=== PATIENT | female | born 1965 | race Caucasian/White ===

== ENCOUNTER 2017-11-20 12:40 | Emergency (ER) | payer OTHER ==
[~2017-11-20] VITALS: Ht 167.6 cm; Wt 93.0 kg
[2017-11-20] MEDS ORDERED: ipratropium/albuterol 3ml nebule NEB ONE (13:20)
[2017-11-20] MEDS ORDERED: ALBU8.5H8 IH (14:07)
[2017-11-20] MEDS ORDERED: GUAI1TBM19 PO (14:07)
[2017-11-20] MEDS ORDERED: AZIT-57 PO (14:07)
[2017-11-20] MEDS ORDERED: BENZ-16 PO (14:07)
[2017-11-20 14:22] VITALS: BP 136/78
== END 2017-11-20 14:23 | disposition home or self-care (01) ==
LOC: ER 12:40
DX: J06.9 Acute upper respiratory infection, unspecified (principal); F17.200 Nicotine dependence, unspecified, uncomplicated; Z88.8 Allergy status to other drugs, medicaments and biological substances; Z88.5 Allergy status to narcotic agent; Z79.899 Other long term (current) drug therapy
CPT/HCPCS: 71046; 94640; 94760; 99284

== ENCOUNTER 2018-03-04 22:22 | Emergency (ER) | payer MEDICAID, OTHER ==
[~2018-03-04] VITALS: Ht 165.1 cm; Wt 79.2 kg
[~2018-03-04 22:22] MED LIST: ALBU8.5H8 IH; GUAI1TBM19 PO
[2018-03-04] MEDS ORDERED: KEN0.1O TP (23:27)
[2018-03-04] MEDS ORDERED: PRED10TA PO (23:27)
[2018-03-04 23:57] VITALS: BP 102/69
== END 2018-03-04 23:58 | disposition home or self-care (01) ==
LOC: ER 22:23
DX: L23.7 Allergic contact dermatitis due to plants, except food (principal); F17.200 Nicotine dependence, unspecified, uncomplicated; Z88.5 Allergy status to narcotic agent; Z79.899 Other long term (current) drug therapy
CPT/HCPCS: 99283

== ENCOUNTER 2018-06-18 12:35 | Emergency (ER) | payer MEDICAID ==
[~2018-06-18] VITALS: Ht 165.1 cm; Wt 87.2 kg
[~2018-06-18 12:35] MED LIST changes: +METH500T PO; +PRED10TA PO
[2018-06-18 12:38] VITALS: BP 137/96
[2018-06-18] MEDS ORDERED: ipratropium/albuterol 3ml nebule NEB ONE (12:55)
[2018-06-18] MEDS ORDERED: GUAI1TBM19 PO (12:59)
[2018-06-18] MEDS ORDERED: AZIT-63 PO (12:59)
[2018-06-18] MEDS ORDERED: benzonatate 100mg capsule PO ONE (13:00)
== END 2018-06-18 13:28 | disposition home or self-care (01) ==
LOC: ER 12:36
DX: J20.9 Acute bronchitis, unspecified (principal); J45.909 Unspecified asthma, uncomplicated; G89.29 Other chronic pain; F17.210 Nicotine dependence, cigarettes, uncomplicated; Z88.5 Allergy status to narcotic agent; Z88.8 Allergy status to other drugs, medicaments and biological substances; Z79.899 Other long term (current) drug therapy; Z79.2 Long term (current) use of antibiotics
CPT/HCPCS: 94640; 94760; 99284

== ENCOUNTER 2018-10-09 14:26 | Emergency (ER) | payer MEDICAID ==
[~2018-10-09] VITALS: Ht 165.1 cm; Wt 83.8 kg
[2018-10-09] MEDS ORDERED: LORazepam 1 MG tablet PO ONE (15:30)
[2018-10-09 16:00] LABS: CLARITY,URINE SLIGHTLY CLOUDY (Clear); COLOR,URINE YELLOW (Yellow); GLUCOSE, URINE NEGATIVE (Neg); KETONES,URINE NEGATIVE (Neg); LEUKOCYTE ESTERASE ,URINE NEGATIVE (Neg); NITRITES, URINE NEGATIVE (Neg); OCCULT BLOOD,URINE SMALL (Neg); PROTEIN,URINE 30 mg/dl (Neg); UROBILINOGEN,URINE 0.2 E.U/dL (0.2-1.0)
[2018-10-09 16:01] LABS: UA COLLECTION TYPE VOIDED
[2018-10-09 16:01] LABS: BASOPHILS % (AUTO) 0.6 % (0-1); EOSINOPHILS % (AUTO) 0.8 % (0-6); HEMATOCRIT 44.6 % (35.0-45.0); HEMOGLOBIN 15.1 g/dl (12.0-16.0); LYMPHOCYTES # (AUTO) 1.9 X10'3 (1.1-4.8); MEAN CORPUSCULAR HEMOGLOBIN 32.9 PG (27.0-31.0); MEAN CORPUSCULAR HGB CONC 33.7 % (33.0-36.5); MEAN CORPUSCULAR VOLUME 97.4 FL (78-98); MEAN PLATELET VOLUME 8.1 FL (7.4-10.4); MONOCYTES # (AUTO) 0.6 X10'3 (0-0.9); MONOCYTES % (AUTO) 9.5 % (2-12); NEUTROPHILS # (AUTO) 3.7 X10'3 (1.8-7.7); NEUTROPHILS % (AUTO) 59.1 % (42-75); PLATELET COUNT 231 X10'3 (140-440); RED BLOOD COUNT 4.58 X10'6 (4.20-5.60); RED CELL DISTRIBUTION WIDTH 13.9 % (11.5-14.5); WHITE BLOOD COUNT 6.2 X10'3 (4.5-11.0)
[2018-10-09 16:12] LABS: URINE AMPHETAMINE SCREEN NEGATIVE (Neg); URINE BARBITUATE SCREEN NEGATIVE (Neg); URINE BENZODIAZEPINES SCREEN NEGATIVE (Neg); URINE CANNABINOID SCREEN POSITIVE (Neg); URINE COCAINE SCREEN NEGATIVE (Neg); URINE METHADONE SCREEN NEGATIVE (Neg); URINE OPIATE SCREEN POSITIVE (Neg); URINE PHENCYCLIDINE SCREEN NEGATIVE (Neg)
[2018-10-09 16:16] LABS: MUCUS STRANDS MANY /LPF (Neg); SQUAMOUS EPITHELIAL CELL,UR MANY /LPF (FEW)
[2018-10-09 16:17] LABS: HYALINE CASTS >30 /LPF (NEGATIVE)
[2018-10-09 16:18] LABS: BACTERIA,URINE FEW /HPF (Neg)
[2018-10-09 16:19] LABS: ALANINE AMINOTRANSFERASE 40 U/L (12-78); ALBUMIN 4.3 G/DL (3.4-5.0); ALBUMIN/GLOBULIN RATIO 1.4 (1.1-1.5); ALKALINE PHOSPHATASE 70 IU/L (46-116); ANION GAP 11 (8-16); ASPARTATE AMINO TRANSFERASE 33 U/L (10-37); BILIRUBIN,TOTAL 0.7 MG/DL (0.1-1.0); BLOOD UREA NITROGEN 6 MG/DL (7-18); BUN/CREATININE RATIO 7.6 (6.6-38.0); CHLORIDE 103 MMOL/L (99-107); CREATININE 0.79 MG/DL (0.40-0.90); ETHANOL < 0.010 GM/DL (0.0-0.010); GLUCOSE 100 MG/DL (70-104); SODIUM 142 MMOL/L (135-145); TOTAL CARBON DIOXIDE 28.4 MMOL/L (24-32); TOTAL PROTEIN 7.4 G/DL (6.4-8.2); eGFR 76 ML/MIN
[2018-10-09 16:22] LABS: POTASSIUM 2.7 MMOL/L (3.5-5.1)
--- NOTE | 2018-10-09 16:22 | NUR ---
Admisssion Note: 53 year old female brought back directly from Triage accompanied by and their dog. She was dressed in mismatched clothes and presents as loud with rambling speech. States her reason for being here is lack of sleep times the past five days. Believes if she falls asleep she "will like it says on the internet. People are coming in my house at night and moving my stuff. I can't find my Celexa. There are voices in my head telling me what to do. " Crying as she relates this information. Appears to be responding to internal stimuli. Loses self in thought. assisting with the interview process. states they moved here one year ago from a town named [facility], where "we lived [place] States "never felt safe." Happy to be in [place] until related "she was getting messages in her head that kept her awake for the past five nights." Blood work obtained. Urine sent to the lab.
[2018-10-09] MEDS ORDERED: potassium Cl oral solution 20 MEQ/15 ML PO ONE (16:25)
[2018-10-09] MEDS ORDERED: haloperidol lactate 5mg/ml inj IM ONE (16:25)
[2018-10-09] MEDS ORDERED: LORazepam 0.5 MG tablet PO ONE (16:35)
--- NOTE | 2018-10-09 16:40 | NUR ---
Call received @ 9645 from the lab that patient had a critical potassium value of 2.7. Charge Nurse Paty LUGO notified. Order received for potassium replacement. Urine revealed UTI. Order received for Septra. Orders also written for Ativan and Haldol. All meds administered as ordered without event.
[2018-10-09] MEDS: sulfamethoxazole/trimethoprim DS (800/160mg) tablet PO SCH ×3 (16:43→20:14)
--- NOTE | 2018-10-09 17:10 | NUR ---
Up to the bathroom with assistance. Voided large amount.
--- NOTE | 2018-10-09 18:45 | NUR ---
Patient is sleeping at shift change. Her dog is on the bed with her. Patients is sitting at bedside. Q15 minute rounding is being done for patient safety.
--- NOTE | 2018-10-09 19:10 | NUR ---
PT SLEEPING LAYING ON HER RIGHT SIDE, RESPIRATIONS EVEN AND UNLABORED. NO DISTRESS NOTED AT THIS TIME. PT HAS GUEST AT BEDSIDE.
--- NOTE | 2018-10-09 20:05 | NUR ---
Patient is in a deep sleep. Her is going home with the dog. Patients bed is in view from the nursing station.
--- NOTE | 2018-10-10 03:21 | NUR ---
Patient awoke and requested a warm blanket. This was provided. Patient immediately returned to sleep. Q15 minute rounding continues for patient safety.
[2018-10-10] MEDS ORDERED: potassium Cl 20 mEq SR tablet PO STA (06:43)
[2018-10-10] MEDS ORDERED: magnesium oxide 400mg tablet PO ONE (06:45)
--- NOTE | 2018-10-10 07:14 | NUR ---
TELEPSYCH DR BECKER CALLED AND GIVEN REPORT ABOUT PT CURRENT STATUS, HISTORY AND MEDICATION INFORMATION.
--- NOTE | 2018-10-10 07:16 | NUR ---
PT WAS SLEEPING, RN WOKE PT, DR JAVIER SOC PROVIDER SPEAKING WITH PT VIA TELEPSYCH MONITOR NOW.
[2018-10-10 07:24] LABS: ALANINE AMINOTRANSFERASE 36 U/L (12-78); ALBUMIN 3.7 G/DL (3.4-5.0); ALBUMIN/GLOBULIN RATIO 1.2 (1.1-1.5); ALKALINE PHOSPHATASE 67 IU/L (46-116); ANION GAP 9 (8-16); ASPARTATE AMINO TRANSFERASE 26 U/L (10-37); BILIRUBIN,TOTAL 0.8 MG/DL (0.1-1.0); BLOOD UREA NITROGEN 10 MG/DL (7-18); BUN/CREATININE RATIO 11.9 (6.6-38.0); CALCIUM 8.5 MG/DL (8.5-10.1); CHLORIDE 108 MMOL/L (99-107); CREATININE 0.84 MG/DL (0.40-0.90); GLUCOSE 84 MG/DL (70-104); POTASSIUM 3.4 MMOL/L (3.5-5.1); SODIUM 145 MMOL/L (135-145); TOTAL CARBON DIOXIDE 28.3 MMOL/L (24-32); TOTAL PROTEIN 6.7 G/DL (6.4-8.2); eGFR 70 ML/MIN
--- NOTE | 2018-10-10 07:43 | NUR ---
PT TELEPSYCH EVAL VIA MONITOR COMPLETE
[2018-10-10] MEDS: sulfamethoxazole/trimethoprim DS (800/160mg) tablet PO SCH (07:51)
--- NOTE | 2018-10-10 08:26 | NUR ---
MEDICATED PT WITH MORNING MEDICATION PER ORDERS, BREAKFAST TRAY PLACED AT BEDSIDE, PT IS RESTING ON LEFT SIDE AT THIS TIME.
[2018-10-10] MEDS ORDERED: ARIP5TAB4 PO (08:55)
[2018-10-10] MEDS ORDERED: ALBU8.5H8 IH (09:29)
[2018-10-10] MEDS ORDERED: METH500T PO (09:29)
--- NOTE | 2018-10-10 09:30 | NUR ---
SPOUSE STOPPED BY TO VISIT PT, THANG OMALLEY [phone], STATES PT DAUGHTERS TO COME VISIT HER THIS WEEKEND, INFORMED SPOUSE PT IS TO BE EVALUATED BY [facility] TODAY AND DETERMINE IF HOLD AND PLACEMENT NEEDED. SPOUSE LEAVING TO WORK AND WILL RETURN LATER TODAY
--- NOTE | 2018-10-10 09:41 | NUR ---
RECEIVED CALL FROM DR PRADO SOC CLARIFYING ORDER ABILIFY 10 MG DAILY. MED REC UPDATED AND WILL HAVE DR ALVAREZ SIGN AND I WILL FAX TO PHARMACY
--- NOTE | 2018-10-10 09:54 | NUR ---
PT JUST FINISHED SPEAKING WITH MANDIE [facility], MANDIE STATES SHE WILL MAKE HER 5150 AND THE PATIENT MAY BE GOING UPSTAIRS AT SOME POINT TODAY, PT IS NOW IN BED RESTING ON HER RIGHT SIDE, CALM, NO S/S OF DISTRESS
--- NOTE | 2018-10-10 10:46 | NUR ---
PT IS IN BED RESTING ON RIGHT SIDE, NO S./S OF DISTRESS NOTED, BREATHING NORMAL, NON LABORED
[2018-10-10] MEDS ORDERED: aripiprazole 5mg tablet PO SCH (11:12)
[2018-10-10] MEDS ORDERED: albuterol 2.5 MG/3 ML nebule NEB PRN (11:15)
--- NOTE | 2018-10-10 11:15 | NUR ---
pt given medications, she did admission paperwork wirh admitting
[2018-10-10] MEDS ORDERED: cyclobenzaprine 10mg tablet PO SCH (11:16)
--- NOTE | 2018-10-10 12:16 | NUR ---
pt at bedside, she acknowledged him and went back to sleep
--- NOTE | 2018-10-10 12:59 | NUR ---
PT IN BED ON LEFT SIDE, NO S/S OF DISTRESS, IS SPEAKING WITH NATALIA LOCKWOOD, RE: PLAN OF CARE
--- NOTE | 2018-10-10 13:39 | NUR ---
pt just left, pt just got off the phone with her daughter Marilee, she is now resting, no s/s of distress
--- NOTE | 2018-10-10 14:36 | NUR ---
pt still at bedside, pt is sleeping on her left side, no agitation noted
--- NOTE | 2018-10-10 15:43 | NUR ---
PT IS SITTING AT BEDISDE, VITALS BEING TAKE, COFFEE GIVEN 10 MINS AGO, AT BEDSIDE, CALM, NO S/S OF DISTRESS NOTED
[2018-10-10 16:03] VITALS: BP 131/75
--- NOTE | 2018-10-10 16:46 | NUR ---
PT IS IN BED, AT BEDSIDE, BOTH ARE SLEEPING, NOP S/S OF DISTRESS
--- NOTE | 2018-10-10 17:05 | NUR ---
PT TO GO [facility] APPROX 20 MINUTES, RN AWARE
--- NOTE | 2018-10-10 17:13 | NUR ---
PT'S SON AND DAUGHTER IN LAW AT BEDSIDE, PT AWARE SHE IS BEING TRANSFERRED UPSTAIRS
[2018-10-10] MEDS ORDERED: CYCL-394 PO (18:52)
[2018-10-10] MEDS ORDERED: BACDS PO (18:52)
== END 2018-10-10 17:37 ==
LOC: ER 14:26
DX: F28 Other psychotic disorder not due to a substance or known physiological condition (principal); F22 Delusional disorders; E87.6 Hypokalemia; N39.0 Urinary tract infection, site not specified; J45.909 Unspecified asthma, uncomplicated; G89.29 Other chronic pain; F41.9 Anxiety disorder, unspecified; F31.9 Bipolar disorder, unspecified; F12.90 Cannabis use, unspecified, uncomplicated; Z88.8 Allergy status to other drugs, medicaments and biological substances; Z88.5 Allergy status to narcotic agent; Z79.899 Other long term (current) drug therapy
CPT/HCPCS: 36415; 80053; 80305; 80320; 81001; 83735; 84443; 85025; 96372; 99285; J1630

== ENCOUNTER 2018-10-10 14:00 | Inpatient (IN) | payer MEDICAID ==
[~2018-10-10] VITALS: Ht 165.1 cm; Wt 80.9 kg
[~2018-10-10 14:00] MED LIST changes: +ARIP5TAB4 PO
[2018-10-10] MEDS ORDERED: mag hydrox/Alum hydrox/simeth 30ml oral suspension PO PRN ×2 (16:25→18:55)
[2018-10-10] MEDS ORDERED: acetaminophen 325mg tablet PO PRN ×3 (16:25→18:55)
[2018-10-10] MEDS ORDERED: magnesium hydroxide 30ml (MOM) UD suspension PO PRN ×2 (16:25→18:55)
[2018-10-10] MEDS ORDERED: CYCL-394 PO (18:52)
[2018-10-10] MEDS ORDERED: BACDS PO (18:52)
[2018-10-10] MEDS ORDERED: tuberculin, purif. prot. deriv. 5 units/0.1ml ID ONE (18:55)
[2018-10-10] MEDS ORDERED: albuterol 2.5 MG/3 ML nebule NEB PRN (19:50)
[2018-10-10] MEDS ORDERED: cyclobenzaprine 10mg tablet PO PRN (19:50)
[2018-10-10] MEDS: hydrOXYzine 25 MG tablet PO PRN (20:59)
[2018-10-10] MEDS: sulfamethoxazole/trimethoprim DS (800/160mg) tablet PO SCH (20:59)
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
--- NOTE | 2018-10-10 23:21 | NUR ---
Skin assessment completed by myself and Mariana LUGO. Pt had very few, very small insignificant scratches in various locations on her body. Pt is concerned about these lang stating that "I have these scratches and I think aliens have been doing that to me." Otherwise pt has no other lang or abrasions.
[2018-10-11] MEDS: hydrOXYzine 25 MG tablet PO PRN ×3 (03:05→20:13)
[2018-10-11] MEDS ORDERED: quetiapine 100mg tablet PO PRN (07:50)
[2018-10-11 08:00] VITALS: BP 126/78
[2018-10-11] MEDS ORDERED: aripiprazole 5mg tablet PO SCH (08:00)
[2018-10-11] MEDS: citalopram 20mg tablet PO SCH (08:22)
[2018-10-11] MEDS: sulfamethoxazole/trimethoprim DS (800/160mg) tablet PO SCH (08:22)
[2018-10-11] MEDS: nicotine 21mg patch - 24 hr TD SCH (08:25)
[2018-10-11] MEDS: potassium Cl 20 mEq SR tablet PO ONE ×2 (13:14→13:21)
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
--- NOTE | 2018-10-11 16:16 | NUR ---
Notified Dr Mckeon of pt's c/o of increased anxiety not managed by christa Greene MD states he will order some Ativan for her.
--- NOTE | 2018-10-11 16:41 | NUR ---
Psychiatrist put in order for Ativan 1 mg PO TID prn anxiety.
[2018-10-11] MEDS: LORazepam 0.5 MG tablet PO PRN (16:51)
[2018-10-11] MEDS: NICOTINE POLACRILEX 2 MG LOZENGE MM PRN (20:12)
[2018-10-11] MEDS: quetiapine 100mg tablet PO SCH (20:12)
[2018-10-11 21:49] VITALS: BP 131/84
--- NOTE | 2018-10-11 23:51 | NUR ---
Chief Complaint: PSYCHOSIS Legal hold:[id number] Client on involuntary status for GD Why are they here: States her reason for being here is lack of sleep times the past 6 days. Pts brought her to ER stating she believes if she falls asleep she "will like it says on the internet. People are coming in my house at night and moving my stuff. I can't find my Celexa. There are voices in my head telling me what to do. " Pt was labile and tearful upon arrival at ER. states they moved here one year ago from a town named [facility], "we lived in a [employer] type of trailer park." States "never felt safe." Happy to be in [place] until related "she was getting messages in her head that kept her awake for the past five nights." Diagnosis/presenting symptoms: Pt is paranoid,states she has been afraid to fall asleep because she is afraid someone is going to kidnap her. Pt has labile mood. Pt is irritable, tearful, agitated, then smiling and cooperative. Assessment What has happened this shift: Pt was sleeping at change of shift. 1:1 assessment completed at bedside. Pt denies s/i, denies a/vh. Mood/affect are labile and pt is pleasant, then tearful, then agitated. Pt reports feeling depressed because she wants to go home. She states she is mad at her because he is "trying to lock me away." Pt had visit w/her daughters during the evening then broke down crying that she wanted to leave with them. She lowered herself to the floor and began crying. Pt was asked to stand up and encouraged pt to say goodbye to her children and return to her room. Pt said goodbye and returned to her room but punched the bed in her room several times crying saying she wants to go home in 72 hours. Explained to pt that she will only be here long enough to get well and the intent is for her to get better and return home. Pt was able to calm herself and took evening meds and went to sleep. S/I, H/I: Pt denies A/VH: Pt denies Sleep: Pt reports difficulty sleeping, states "I dont want a medicated sleep, I want healthy natural sleep" ADL's: independent Group attendance: attended morning group Were meds taken: yes Any med S/E: pt is fatigued Mental Status Exam Appearance: Pt is casually dressed, adequately groomed Eye contact: good Behavior: cooperative, restless, easily distracted, Pt walks around room and washes hands etc while having a conversation. Speech: labile, soft and calm then gets agitated and shouts and cries out, then calms herself. Mood: Depressed, anxious Affect: Anxious, labile Thought process: disorganized, tangential, paranoid Thought Content: pt states she was more in the stillaguamish spirit today, stating her day was hard, She questions why her had to attend visit w/her son. Pt is worried that her family is trying to "institutionalize" her. Cognition: A/O X 4 Insight: Fair Judgment: Fair Interventions: PRN's used: Atarax 25 mg Therapeutic interventions: 1:1 assessment, provided safe therapeutic environment, reality orientation, medication administration & monitoring, Q 15 min checks. Restraints/seclusion/emergency medication: None Justification of Continued Inpatient Treatment: Pt somewhat paranoid, delusional, anxiety bordering agitation at times, was not taking meds at home, self medicating with marijuana, needs stabilization, mediation adjustment and monitoring, will go home with family once stable.
[2018-10-12] MEDS: LORazepam 0.5 MG tablet PO PRN ×2 (05:47→20:55)
[2018-10-12] MEDS: NICOTINE POLACRILEX 2 MG LOZENGE MM PRN (05:48)
[2018-10-12 07:51] LABS: HEMOGLOBIN A1C 5.5 % (4.5-6.2)
[2018-10-12 08:00] VITALS: BP 116/70
[2018-10-12 08:06] LABS: CHOL/HDL RATIO 2.9 (0.00-4.99); CHOLESTEROL 146 MG/DL (0-200); CREATININE 0.91 MG/DL (0.40-0.90); HDL CHOLESTEROL 51 MG/DL (35-60); LDL CHOLESTEROL 76 MG/DL (50-100); POTASSIUM 3.8 MMOL/L (3.5-5.1); TRIGLYCERIDES 112 MG/DL (20-135); eGFR 64 ML/MIN
[2018-10-12] MEDS: citalopram 20mg tablet PO SCH (08:25)
[2018-10-12] MEDS: multivitamins, therapeutics tablet PO SCH (08:25)
[2018-10-12] MEDS: nicotine 21mg patch - 24 hr TD SCH (08:27)
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
[2018-10-12] MEDS: quetiapine 100mg tablet PO SCH (20:51)
[2018-10-12 21:59] VITALS: BP 147/87
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
[2018-10-13 07:41] VITALS: BP 114/76
[2018-10-13] MEDS: nicotine 21mg patch - 24 hr TD SCH (08:02)
[2018-10-13] MEDS: multivitamins, therapeutics tablet PO SCH (08:02)
[2018-10-13] MEDS: citalopram 20mg tablet PO SCH (08:02)
[2018-10-13] MEDS: hydrOXYzine 25 MG tablet PO PRN (09:21)
[2018-10-13 10:07] LABS: RPR Non Reactive (Non Reactive)
[2018-10-13] MEDS ORDERED: phenylephrine/cocoa butter (Preparation H) suppository RC PRN (13:30)
[2018-10-13] MEDS ORDERED: PHENYLEPH/MIN OIL/PETROLAT hemorrhoid oint 57GM tube RC PRN (17:20)
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
[2018-10-13 19:54] VITALS: BP 143/86
[2018-10-13] MEDS ORDERED: quetiapine 100mg tablet PO SCH (21:00)
[2018-10-13] MEDS: LORazepam 0.5 MG tablet PO PRN (22:24)
--- NOTE | 2018-10-14 01:32 | NUR ---
RN PROGRESS NOTE: Chief Complaint: PSYCHOSIS Legal hold:5150 Client on involuntary status for GD. Why are they here: the patient Bib family who state she hasn't been sleeping, thinks she's being monitored with some sort of device, her food is being tampered with, hears music when there is none, and people are reading her mind. She's not eating much or showering. She denies wanting to harm herself or others and realizes she needs help. Diagnosis/presenting symptoms: Bipolar, Psychosis, PTSD, paranoia, insomnia, irritability, tearfulness, hyper-spiritual, anxiety. Assessment: What has happened this shift: The patient was found in the hallway at shift change. 1:1 completed at bedside. "The Doctor told me I could go home tomorrow." She was happy at first, then started talking about her , "I lost a connection with my , and I don't know how to fix it, I'm going through Menopause, and he doesn't understand." Then she talked about her son. "My son says he's the Jose of me, he disrespects me and says things that are untrue, "I'm not a trash can, don't put trash on me. He breaks my heart." When asked about her problem with sleep, she responded, "I don't have a problem, I talked to other people here today, and they all said they have trouble sleeping, so there's no problem." She was asked about her statement from earlier in the day when she said something about G5. "It has to do with the internet, cell phones, I saw it on Youtube. We're all made of water and it messes with waves in our bodies, DNA. Even trees have the same DNA as we do." A little later the patient was told by the Charge Nurse that she would not leave tomorrow. She started crying, "they lied, I was told I could leave tomorrow, everybody lies to me." She then sat on the ground and started begging God to help her. She was inconsolable for a while, refused her meds, then came to me when she calmed down for her medications. She took her medication and went to bed. S/I, H/I: Denies A/VH: Denies Sleep: "I keep getting woke up when people come in my room every 15 minutes." ADL's: Independent Group attendance: No groups tonight. Were meds taken: yes Any med S/E: None noted or reported. Mental Status Exam: Appearance: Disheveled, wearing street clothes, appears stated age. Eye contact: Direct. Behavior: Labile. Cries then laughs.. Speech: Fast, loud volume. Mood: "Pissed off". Affect: Labile, congruent. Thought process: Disorganized, thought blocking. Thought Content: Delusional, paranoid, suspicious, wants to go home. Cognition: A/O X 4 Insight: Poor Judgment: Poor Interventions: PRN's used: Ativan for anxiety. Therapeutic interventions: 1:1 assessment, provided safe therapeutic environment, reality orientation, medication administration & monitoring, Q 15 min checks. Restraints/seclusion/emergency medication: None Justification of Continued Inpatient Treatment: The patient is gravely disabled, delusional, and still requires medication stabilization.
[2018-10-14] MEDS: multivitamins, therapeutics tablet PO SCH (07:52)
[2018-10-14] MEDS: citalopram 20mg tablet PO SCH (07:52)
[2018-10-14] MEDS: nicotine 21mg patch - 24 hr TD SCH (07:53)
--- NOTE | 2018-10-14 14:22 | NUR ---
RN PROGRESS NOTE: Chief Complaint: PSYCHOSIS Legal hold:5250 Client on involuntary status for GD. Why are they here: the patient Bib family who state she hasn't been sleeping, thinks she's being monitored with some sort of device, her food is being tampered with, hears music when there is none, and people are reading her mind. She's not eating much or showering. She denies wanting to harm herself or others and realizes she needs help. Diagnosis/presenting symptoms: Bipolar, Psychosis, PTSD, paranoia, insomnia, irritability, tearfulness, hyper-spiritual, anxiety. Assessment: What has happened this shift: The patient was asleep at change of shift. She was able to get up for breakfast and take her meds. Talks of having an affair and he does not understand she is going through menopause. Attended all grooups and meals. Believes if she sleeps she will "like on the internet scene." and son here to visit and wanting to talk with doctor. Son states they got rid of all illicit drugs from the house and all old medications that had . The are concerned about discharge and follow up. Patient remains delusional and disorganized in thinking and speech. S/I, H/I: Denies A/VH: Denies Sleep: Napped Group attendance: Yes Were meds taken: yes Any med S/E: None noted or reported. Mental Status Exam: Appearance: Disheveled, took shower Eye contact: Fair Behavior: Cooperative and redirectable Speech: disorganized Mood: Depressed and anxious Affect: anxious Thought process: Disorganized Thought Content: Delusional, paranoid, suspicious Cognition: A/O X 3 Insight: Poor Judgment: Poor Interventions: PRN's used: None Therapeutic interventions: 1:1 assessment, provided safe therapeutic environment, reality orientation, medication administration & monitoring, Q 15 min checks. Restraints/seclusion/emergency medication: None Justification of Continued Inpatient Treatment: The patient is gravely disabled, delusional, and still requires medication stabilization.
[2018-10-14] MEDS ORDERED: QUET100T33 PO (16:40)
[2018-10-14] MEDS ORDERED: CITA-124 PO (16:40)
[2018-10-14] MEDS ORDERED: HYDR-3686 PO (16:40)
== END 2018-10-14 19:05 | disposition home or self-care (01) | DRG 751 ==
LOC: ADULT MH 14:00
PROVIDERS: ADMIT Psychiatry & Neurology Psychiatry; ATTEND Psychiatry & Neurology Psychiatry
DX: F29 Unspecified psychosis not due to a substance or known physiological condition (principal); F20.9 Schizophrenia, unspecified; E87.6 Hypokalemia; F15.90 Other stimulant use, unspecified, uncomplicated; F17.210 Nicotine dependence, cigarettes, uncomplicated; F32.9 Major depressive disorder, single episode, unspecified; F41.9 Anxiety disorder, unspecified; F12.19 Cannabis abuse with unspecified cannabis-induced disorder; J45.909 Unspecified asthma, uncomplicated; G47.9 Sleep disorder, unspecified; G89.29 Other chronic pain; M54.9 Dorsalgia, unspecified; R19.7 Diarrhea, unspecified; Z88.6 Allergy status to analgesic agent; Z79.899 Other long term (current) drug therapy; Z90.49 Acquired absence of other specified parts of digestive tract; Z98.891 History of uterine scar from previous surgery
CPT/HCPCS: 36415; 80061; 82565; 83036; 84132; 84439; 84443; 86592; 87070; 94760; Q0177

== ENCOUNTER 2018-10-21 14:43 | Emergency (ER) | payer MEDICAID ==
[~2018-10-21] VITALS: Ht 165.1 cm; Wt 165.0 kg
[~2018-10-21 14:43] MED LIST changes: -ARIP5TAB4 PO; +BACDS PO; +CITA-124 PO; -GUAI1TBM19 PO; +HYDR-3686 PO; -PRED10TA PO; +QUET100T33 PO
[2018-10-21 15:46] LABS: URINE HCG NEGATIVE (NEG)
--- NOTE | 2018-10-21 15:56 | NUR ---
patient states that she calls apon the [facility] for [facility], and [facility]. Patient threw her glasses that she states she needs towards end of bed. Nurse obtained glasses for myron
[2018-10-21 15:59] LABS: URINE AMPHETAMINE SCREEN NEGATIVE (Neg); URINE BARBITUATE SCREEN NEGATIVE (Neg); URINE BENZODIAZEPINES SCREEN NEGATIVE (Neg); URINE CANNABINOID SCREEN POSITIVE (Neg); URINE COCAINE SCREEN NEGATIVE (Neg); URINE METHADONE SCREEN NEGATIVE (Neg); URINE OPIATE SCREEN NEGATIVE (Neg); URINE PHENCYCLIDINE SCREEN NEGATIVE (Neg)
--- NOTE | 2018-10-21 15:59 | NUR ---
"all the men in the bible want to do each other and they don't need women". patient states" bible bashes women and makes them feel like nothing." " everyone watching me on that computer there you have can know the true me and patient states full name and Patient is sitting on bed rocking back and forth talking to herself.
--- NOTE | 2018-10-21 16:16 | NUR ---
LAB CAME TO DRAW PATIENT, PATIENT YELLED AT BLACKSMITH HAMMER OPERATOR STATING YOU AREN'T GOING TO TOUCH ME, I REMEMBER YOU FROM LAST TIME. PATINT TEARFUL AT BEDSIDE. THE OTHER BLACKSMITH HAMMER OPERATOR ON THE FLOOR WAS ABLE TO DRAW PATIENTS LABS WITH OVERFLOW TECH AT BEDSIDE.
[2018-10-21] MEDS ORDERED: QUET50TA22 PO (16:32)
[2018-10-21] MEDS ORDERED: HYDR-3686 PO (16:32)
[2018-10-21] MEDS ORDERED: CITA20TA2 PO (16:32)
[2018-10-21] MEDS ORDERED: QUET100T33 PO (16:32)
[2018-10-21 16:40] LABS: BASOPHILS % (AUTO) 0.3 % (0-1); EOSINOPHILS # (AUTO) 0.1 X10'3 (0-0.9); EOSINOPHILS % (AUTO) 0.8 % (0-6); HEMATOCRIT 43.3 % (35.0-45.0); HEMOGLOBIN 14.5 g/dl (12.0-16.0); LYMPHOCYTES # (AUTO) 1.2 X10'3 (1.1-4.8); LYMPHOCYTES % (AUTO) 17.9 % (21-51); MEAN CORPUSCULAR HEMOGLOBIN 32.8 PG (27.0-31.0); MEAN CORPUSCULAR HGB CONC 33.5 g/dL (33.0-36.5); MEAN CORPUSCULAR VOLUME 97.9 FL (78-98); MEAN PLATELET VOLUME 7.9 FL (7.4-10.4); MONOCYTES # (AUTO) 0.4 X10'3 (0-0.9); MONOCYTES % (AUTO) 5.9 % (2-12); NEUTROPHILS # (AUTO) 4.9 X10'3 (1.8-7.7); NEUTROPHILS % (AUTO) 75.1 % (42-75); PLATELET COUNT 260 X10'3 (140-440); RED BLOOD COUNT 4.42 X10'6 (4.20-5.60); RED CELL DISTRIBUTION WIDTH 14.1 % (11.5-14.5); WHITE BLOOD COUNT 6.5 X10'3 (4.5-11.0)
[2018-10-21 16:58] LABS: ALANINE AMINOTRANSFERASE 50 U/L (12-78); ALBUMIN/GLOBULIN RATIO 1.2 (1.1-1.5); ALKALINE PHOSPHATASE 83 IU/L (46-116); ANION GAP 12 (8-16); ASPARTATE AMINO TRANSFERASE 39 U/L (10-37); BILIRUBIN,TOTAL 0.3 MG/DL (0.1-1.0); BLOOD UREA NITROGEN 6 MG/DL (7-18); BUN/CREATININE RATIO 8.2 (6.6-38.0); CALCIUM 8.9 MG/DL (8.5-10.1); CHLORIDE 105 MMOL/L (99-107); CREATININE 0.73 MG/DL (0.40-0.90); ETHANOL < 0.010 GM/DL (0.0-0.010); GLUCOSE 98 MG/DL (70-104); POTASSIUM 3.5 MMOL/L (3.5-5.1); SODIUM 143 MMOL/L (135-145); TOTAL CARBON DIOXIDE 26.5 MMOL/L (24-32); TOTAL PROTEIN 7.3 G/DL (6.4-8.2); eGFR 83 ML/MIN
--- NOTE | 2018-10-21 17:18 | NUR ---
PATIENT SITTING IN HER BED ROCKING BACK AND FORTH. "PATIENT STATES SHE WANTS TO GO HOME BECAUSE SHE DIDN'T DO ANYTHING, SHE HAS RIGHTS" PATIENT ALSO STATES THAT SHE WANTS HER MONEY BACK, SOMEONE NAMED MICHAEL HAS IT.
[2018-10-21] MEDS ORDERED: OLANZapine **IM** 10 mg inj. IM ONE (17:20)
--- NOTE | 2018-10-21 17:54 | NUR ---
PATIENT ACTING OUT , YELLING. WHEN NURSING TALKED ABOUT GIVING MEDICATION PATIENT STATED, " I'M NOT TAKING THAT MEDICATION YOU ARE TRYING TO GIVE ME, IT HURT ME LAST TIME". PATIENT GIVEN OPPURTUNITY TO TAKE ORAL MEDS OR IM INJECTION, PATIENT STATED YOU WON'T TOUCH ME YOU CRAZY LADY". SECURITY AT BEDSIDE RESTRAINING PATIENT AND IM MEDICATION GIVEN TO PATIENT.
--- NOTE | 2018-10-21 19:00 | NUR ---
TELE PYCH IN PROGRESS
[2018-10-21] MEDS ORDERED: LORazepam 2 mg/ml vial ONE (19:04)
[2018-10-21] MEDS ORDERED: diphenhydrAMINE 50 mg/ml inj IM ONE (19:05)
[2018-10-21] MEDS ORDERED: LORazepam 2 mg/ml vial IM ONE (19:05)
[2018-10-21] MEDS ORDERED: haloperidol lactate 5mg/ml inj IM ONE (19:05)
--- NOTE | 2018-10-21 19:05 | NUR ---
UPON COMPLETING TELE PSYCH CONSULT, PT BECAME AGGITATED AND AGGRESSIVE TOWARDS STAFF, GETTING OTHER PTS AGGRAVATED. DR TOURE APPROACHED FOR MEDICATION ORDERS. SECURITY CALLED TO BEDSIDE AND ASSISTED WITH MEDICATION ADMINSTRATION FOR PT AND STAFF SAFETY.
--- NOTE | 2018-10-21 19:56 | NUR ---
PT HAD VERBAL OUTBURST AND WALKING AROUND. PT WAS ASKED TO GET BACK IN BED AND BECAME BELLIGERENT. SECURITY WAS CALLED.
[2018-10-21] MEDS: quetiapine 100mg tablet PO SCH (20:58)
[2018-10-21] MEDS ORDERED: QUEtiapine 25mg tablet PO PRN (21:00)
--- NOTE | 2018-10-22 00:28 | NUR ---
PT SLEEPING QUIETLY, NO ACUTE DISTRESS NOTED AT THIS TIME
--- NOTE | 2018-10-22 01:27 | NUR ---
Patient sleeping comfortably on hospital bed, respirations are even and regular.
--- NOTE | 2018-10-22 06:51 | NUR ---
Nursing Note: Pt laying on her R side, eyes closed, respirations even and unlabored, no S&S of distress, will continue to monitor.
--- NOTE | 2018-10-22 08:55 | NUR ---
Nursing Note: Pt laying in bed at this time respirations even and unlabored, no S&S of distress. Will continue to montitor.
[2018-10-22] MEDS: citalopram 20mg tablet PO SCH (08:56)
[2018-10-22] MEDS: hydrOXYzine 25 MG tablet PO PRN ×2 (08:56→15:38)
--- NOTE | 2018-10-22 10:30 | NUR ---
Nursing Note: Pt laying in bed, no S8S of distress, will continue to monitor.
--- NOTE | 2018-10-22 11:31 | NUR ---
[facility] T[facility] WITH PATIENT
--- NOTE | 2018-10-22 12:05 | NUR ---
Nursing Note: Pt is laying in bed on R side with eyes closed, respirations even and unlabored, no S&S of distress, will continue to monitor.
--- NOTE | 2018-10-22 13:19 | NUR ---
Nursing Note: Pt sitting in bed rocking. Notifed Dr. Cosme pt is anxious, no medications ordered at this time. Will continue to monitor.
--- NOTE | 2018-10-22 15:04 | NUR ---
Nursing Note: Pt laying on R side, eyes closed, respirations even and unlabored, no S&S of distress, will continue to monitor.
--- NOTE | 2018-10-22 15:55 | NUR ---
Nursing Note: Pt given Atarax for anxiety. Pt cooperative with medication administration. No S&S of distress, will continue to monitor.
[2018-10-22] MEDS: LORazepam 1 MG tablet PO PRN (16:14)
--- NOTE | 2018-10-22 17:52 | NUR ---
Nursing Note: Pt laying on her back with her eyes closed, no S&S of distress, will continue to monitor.
--- NOTE | 2018-10-22 18:50 | NUR ---
Call from [facility] for orders for UA and TSH. Will facilitate per Dr Alvarez verbal order.
--- NOTE | 2018-10-22 18:53 | NUR ---
PATIENT ASLEEP, NO SIGNS OF DISTRESS NOTED, BREATHING EVEN AND UNLABORED. EASILY AROUSED VIA VERBAL STIMULI, DENIES SI OR HI, DENIES ANY PHYSICAL COMPLAINTS AND JUST STATES SHE WANTS TO GO HOME. PATIENT CALM AND COOPERATIVE WITH CARE, ALL SAFETY MEASURES IN PLACE, PATIENT WITHIN SIGHT OF NURSING STAFF AT ALL TIMES.
[2018-10-22 19:51] LABS: CLARITY,URINE CLEAR (Clear); COLOR,URINE YELLOW (Yellow); GLUCOSE, URINE NEGATIVE (Neg); KETONES,URINE NEGATIVE (Neg); LEUKOCYTE ESTERASE ,URINE NEGATIVE (Neg); NITRITES, URINE NEGATIVE (Neg); OCCULT BLOOD,URINE NEGATIVE (Neg); PH,URINE 8.5 (4.8-8.0); PROTEIN,URINE NEGATIVE (Neg); UROBILINOGEN,URINE 0.2 E.U/dL (0.2-1.0)
[2018-10-22 19:54] LABS: UA COLLECTION TYPE CLN CATCH MIDSTREAM
--- NOTE | 2018-10-22 21:27 | NUR ---
CALL FROM BEUAL[facility] AT [facility] AT THIS TIME, REPORT GIVEN, UA AND TSH RESULTS FAXED.
[2018-10-22] MEDS: quetiapine 100mg tablet PO SCH (21:54)
--- NOTE | 2018-10-22 22:44 | NUR ---
The patient is currently resting on her bed. She is easily agitated and verbally aggressive with staff. She requested and received hygine items.
--- NOTE | 2018-10-23 00:43 | NUR ---
The patient was awake but then awakened by loud peer. She was confused as to what the date was but was cooperative.
--- NOTE | 2018-10-23 00:45 | NUR ---
[facility]le[facility] has accepted the patient to their facility for an admission later today.
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
--- NOTE | 2018-10-23 02:47 | NUR ---
The patient appears to be asleep at this time
--- NOTE | 2018-10-23 05:15 | NUR ---
The patient is resting on her bed
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
--- NOTE | 2018-10-23 06:30 | NUR ---
Awake at change of shift. Standing at foot of bed, yelling. States "I don't need to be here. What am I doing here? This is a mistake." Rambling incoherent speech. Not based in reality.
[2018-10-23] MEDS: LORazepam 1 MG tablet PO PRN (08:24)
[2018-10-23] MEDS: citalopram 20mg tablet PO SCH (08:24)
--- NOTE | 2018-10-23 08:30 | NUR ---
Continues to remain awake. Focused on her and her son. Believes "they don't know what they're talking about. I don't need to be here. I need to see sunshine. I'm not crazy. I don't know how I got here." But has no memory of the events that led to this hospitalization.
--- NOTE | 2018-10-23 10:30 | NUR ---
Resting on her bed at this time. Breathing even and unlabored.
--- NOTE | 2018-10-23 12:30 | NUR ---
Awake and standing by her bed, wrapped in a blanket. Asking staff about her bracelets and her boots. Informed her bracelets and boots were safely locked up. Patient has difficulty accepting this information. Speaking incoherently to no one in particular.
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
[2018-10-23] MEDS: hydrOXYzine 25 MG tablet PO PRN (17:10)
[2018-10-23] MEDS ORDERED: LORA1TAB IM (17:17)
[2018-10-23] MEDS ORDERED: LORA2VIA30 IM (17:17)
[2018-10-23] MEDS ORDERED: ZIPR20CA2 IM (17:17)
[2018-10-23] MEDS ORDERED: GEO20I IM (17:17)
[2018-10-23 17:25] VITALS: BP 146/83
[2018-10-23] MEDS ORDERED: ziprasidone IM 20mg inj **IM only IM PRN (17:25)
[2018-10-23] MEDS ORDERED: LORazepam 2 mg/ml vial IM PRN (17:25)
--- NOTE | 2018-10-23 17:42 | NUR ---
Crying off and on throughout the day. Remains delusional and slightly agitated. Medicated with Atarax 25 mg. PO to decrese agitation and increase comfort.
== END 2018-10-23 20:36 ==
LOC: ER 14:44
DX: F29 Unspecified psychosis not due to a substance or known physiological condition (principal); J45.909 Unspecified asthma, uncomplicated; G89.29 Other chronic pain; F41.9 Anxiety disorder, unspecified; F31.9 Bipolar disorder, unspecified; F20.9 Schizophrenia, unspecified; F12.90 Cannabis use, unspecified, uncomplicated; Z88.5 Allergy status to narcotic agent; Z88.8 Allergy status to other drugs, medicaments and biological substances; Z79.2 Long term (current) use of antibiotics; Z79.899 Other long term (current) drug therapy
CPT/HCPCS: 36415; 80053; 80305; 80320; 81003; 81025; 84443; 85025; 96372; 99285; J1200; J2060; Q0177

== ENCOUNTER 2018-11-02 07:01 | Emergency (ER) | payer MEDICAID ==
[~2018-11-02] VITALS: Ht 166.4 cm; Wt 82.0 kg
[~2018-11-02 07:01] MED LIST changes: -ALBU8.5H8 IH; -BACDS PO; -CITA-124 PO; +CITA20TA2 PO; +GEO20I IM; +LORA2VIA30 IM; -METH500T PO; +QUET50TA22 PO
[2018-11-02 07:10] VITALS: BP 136/76
[2018-11-02] MEDS ORDERED: LORA1TAB PO (07:43)
[2018-11-02] MEDS ORDERED: LORazepam 1 MG tablet PO ONE (07:45)
== END 2018-11-02 08:03 | disposition home or self-care (01) ==
LOC: ER 07:02
DX: F41.9 Anxiety disorder, unspecified (principal); F31.9 Bipolar disorder, unspecified; F20.9 Schizophrenia, unspecified; J45.909 Unspecified asthma, uncomplicated; G89.29 Other chronic pain; M54.9 Dorsalgia, unspecified; F12.90 Cannabis use, unspecified, uncomplicated; Z88.6 Allergy status to analgesic agent
CPT/HCPCS: 99284

== ENCOUNTER 2019-06-12 13:28 | Emergency (ER) | payer MEDICAID ==
[~2019-06-12] VITALS: Ht 165.1 cm; Wt 87.0 kg
[~2019-06-12 13:28] MED LIST changes: +INHA1INH2
[2019-06-12] MEDS ORDERED: ondansetron/PF 4mg/2ml inj IV ONE ×2 (13:55→15:15)
[2019-06-12] MEDS ORDERED: LORazepam 2 mg/ml vial IV ONE (13:55)
[2019-06-12 14:05] LABS: BASOPHILS % (AUTO) 0.6 % (0-1); EOSINOPHILS % (AUTO) 0.1 % (0-6); HEMATOCRIT 47.7 % (35.0-45.0); HEMOGLOBIN 16.3 g/dl (12.0-16.0); LYMPHOCYTES # (AUTO) 1.4 X10'3 (1.1-4.8); LYMPHOCYTES % (AUTO) 16.2 % (21-51); MEAN CORPUSCULAR HEMOGLOBIN 32.7 PG (27.0-31.0); MEAN CORPUSCULAR HGB CONC 34.2 g/dL (33.0-36.5); MEAN CORPUSCULAR VOLUME 95.4 FL (78-98); MEAN PLATELET VOLUME 8.5 FL (7.4-10.4); MONOCYTES # (AUTO) 0.4 X10'3 (0-0.9); MONOCYTES % (AUTO) 4.1 % (2-12); PLATELET COUNT 259 X10'3 (140-440); RED CELL DISTRIBUTION WIDTH 13.6 % (11.5-14.5); WHITE BLOOD COUNT 8.8 X10'3 (4.5-11.0)
--- NOTE | 2019-06-12 14:05 | NUR ---
PT MEDICATED WITH 1 MG ATIVAN IVP FOR INCREASED AGITATION AND RESTLESSNESS. MEDICATION EFFECTIVE, PT MORE RELAXED AND NOT THRASHING AROUND.
[2019-06-12 14:16] LABS: ALANINE AMINOTRANSFERASE 28 U/L (12-78); ALBUMIN 4.3 G/DL (3.4-5.0); ALBUMIN/GLOBULIN RATIO 1.2 (1.1-1.5); ALKALINE PHOSPHATASE 67 IU/L (46-116); ANION GAP 14 (8-16); ASPARTATE AMINO TRANSFERASE 20 U/L (10-37); BILIRUBIN,TOTAL 0.8 MG/DL (0.1-1.0); BLOOD UREA NITROGEN 8 MG/DL (7-18); BUN/CREATININE RATIO 9.1 (6.6-38.0); CALCIUM 9.6 MG/DL (8.5-10.1); CHLORIDE 106 MMOL/L (99-107); CREATININE 0.88 MG/DL (0.40-0.90); GLUCOSE 130 MG/DL (70-104); POTASSIUM 3.9 MMOL/L (3.5-5.1); SODIUM 143 MMOL/L (135-145); TOTAL CARBON DIOXIDE 23.4 MMOL/L (24-32); eGFR 67 ML/MIN
[2019-06-12 14:33] LABS: URINE HCG NEGATIVE (NEG)
[2019-06-12 14:37] LABS: CLARITY,URINE CLOUDY (Clear); COLOR,URINE YELLOW (Yellow); GLUCOSE, URINE NEGATIVE (Neg); KETONES,URINE 15 mg/dl (Neg); LEUKOCYTE ESTERASE ,URINE NEGATIVE (Neg); NITRITES, URINE NEGATIVE (Neg); OCCULT BLOOD,URINE TRACE-INTACT (Neg); PH,URINE 8.5 (4.8-8.0); PROTEIN,URINE 100 mg/dl (Neg); UROBILINOGEN,URINE 0.2 E.U/dL (0.2-1.0)
[2019-06-12 14:38] LABS: UA COLLECTION TYPE STRAIGHT CATH
[2019-06-12 14:42] LABS: BACTERIA,URINE 1+ /HPF (Neg); MUCUS STRANDS MODERATE /LPF (Neg); SQUAMOUS EPITHELIAL CELL,UR MANY /LPF (FEW)
[2019-06-12 14:43] LABS: WBC,URINE 0-4 /HPF (0-4)
--- NOTE | 2019-06-12 14:43 | NUR ---
Assumed care of patient. Patient resting in bed with eyes closed. Patient calm and no distress noted. at bedside.
[2019-06-12] MEDS ORDERED: normal saline 1000ML IV soln IVB ONE (15:15)
[2019-06-12] MEDS ORDERED: ketorolac trometh. 30mg/ml inj. IV ONE (15:15)
[2019-06-12] MEDS ORDERED: acetaminophen 325mg tablet PO ONE (15:15)
[2019-06-12] MEDS ORDERED: ONDA8TAB6 PO (15:31)
[2019-06-12] MEDS ORDERED: IBUP-1984 PO (15:31)
[2019-06-12] MEDS ORDERED: ACET-2615 PO (15:31)
--- NOTE | 2019-06-12 16:09 | NUR ---
Patient reports still being too nauseated to take PO tylenol. Will attempt again soon. Patient resting in bed, bolus NS liter infusing, at bedside.
[2019-06-12 17:57] VITALS: BP 135/67
== END 2019-06-12 18:01 | disposition home or self-care (01) ==
LOC: ER 13:28
DX: B34.9 Viral infection, unspecified (principal); R11.2 Nausea with vomiting, unspecified; J45.909 Unspecified asthma, uncomplicated; G89.29 Other chronic pain; F41.9 Anxiety disorder, unspecified; F31.9 Bipolar disorder, unspecified; F20.9 Schizophrenia, unspecified; F12.90 Cannabis use, unspecified, uncomplicated; Z88.5 Allergy status to narcotic agent; Z88.8 Allergy status to other drugs, medicaments and biological substances; Z79.899 Other long term (current) drug therapy
CPT/HCPCS: 36415; 80053; 81001; 81025; 85025; 85610; 93005; 96361; 96374; 96375; 96376; 99284; J1885; J2060; J2405; J7030

== ENCOUNTER 2020-02-18 09:42 | Day surgery (SDC) | payer MEDICAID ==
[~2020-02-18] VITALS: Ht 166.4 cm; Wt 90.0 kg
[~2020-02-18 09:42] MED LIST changes: +ONDA8TAB6 PO
[2020-02-18 09:49] VITALS: BP 113/74
[2020-02-18] MEDS ORDERED: BUS15T PO (10:09)
[2020-02-18] MEDS ORDERED: ALBU8HFA PO (10:09)
[2020-02-18] MEDS ORDERED: ATOR10TA PO (10:10)
[2020-02-18] MEDS ORDERED: LIDOcaine Viscous 15ml cup ONE (10:53)
[2020-02-18] MEDS ORDERED: MIDAZolam 5mg/5ml vial ONE (10:53)
[2020-02-18] MEDS ORDERED: fentaNYL/PF 50MCG/1 ML 2ML syringe ONE (10:53)
[2020-02-18 11:16] VITALS: BP 121/74
[2020-02-18 11:26] VITALS: BP 142/76
[2020-02-18 11:36] VITALS: BP 122/77
[2020-02-18 11:46] VITALS: BP 114/60
== END 2020-02-18 12:00 | disposition home or self-care (01) ==
LOC: GI LAB 09:42
PROVIDERS: ATTEND Internal Medicine Gastroenterology
DX: R12 Heartburn (principal); K22.70 Barrett's esophagus without dysplasia; K22.8 Other specified diseases of esophagus; K44.9 Diaphragmatic hernia without obstruction or gangrene; K29.50 Unspecified chronic gastritis without bleeding; B96.81 Helicobacter pylori [H. pylori] as the cause of diseases classified elsewhere
CPT/HCPCS: 43239; J2250; J3010; J7040; 99152; 99153; A4620

== ENCOUNTER 2020-03-03 09:16 | Outpatient (CLI) | payer MEDICAID ==
[~2020-03-03] VITALS: Ht 166.4 cm; Wt 89.8 kg
[~2020-03-03 09:16] MED LIST changes: +ALBU8HFA PO; +ATOR10TA PO; +BUS15T PO
[2020-03-03] MEDS ORDERED: albuterol 2.5 MG/3 ML nebule NEB ONE (09:45)
== END 2020-03-03 23:59 | disposition home or self-care (01) ==
LOC: RT 09:16
PROVIDERS: ATTEND Family Medicine
DX: R06.2 Wheezing (principal)
CPT/HCPCS: 94060; 94729; 94760

== ENCOUNTER 2021-07-16 09:41 | Emergency (ER) | payer MEDICAID, OTHER ==
[~2021-07-16] VITALS: Ht 165.1 cm; Wt 77.3 kg
[~2021-07-16 09:41] MED LIST changes: -GEO20I IM; -HYDR-3686 PO; -INHA1INH2; -ONDA8TAB6 PO; -QUET100T33 PO; -QUET50TA22 PO
[2021-07-16 09:46] VITALS: BP 168/93
[2021-07-16] MEDS ORDERED: IBUP-1984 PO (11:24)
== END 2021-07-16 12:23 | disposition home or self-care (01) ==
LOC: ER 09:42
DX: M25.572 Pain in left ankle and joints of left foot (principal); J45.909 Unspecified asthma, uncomplicated; G89.29 Other chronic pain; M54.9 Dorsalgia, unspecified; F41.9 Anxiety disorder, unspecified; F31.9 Bipolar disorder, unspecified; F12.10 Cannabis abuse, uncomplicated; F20.9 Schizophrenia, unspecified; Z88.5 Allergy status to narcotic agent; Z88.8 Allergy status to other drugs, medicaments and biological substances
CPT/HCPCS: 73564; 99283

== ENCOUNTER 2021-09-08 17:41 | Emergency (ER) | payer MEDICAID ==
[~2021-09-08] VITALS: Ht 165.1 cm; Wt 80.0 kg
[2021-09-08 17:49] VITALS: BP 160/76
[2021-09-08] MEDS ORDERED: HYDR-3965 PO (18:52)
[2021-09-08] MEDS ORDERED: CEPH250T PO (18:52)
== END 2021-09-08 19:32 | disposition home or self-care (01) ==
LOC: ER 17:42
DX: L72.8 Other follicular cysts of the skin and subcutaneous tissue (principal); J86.9 Pyothorax without fistula; N95.1 Menopausal and female climacteric states; J45.909 Unspecified asthma, uncomplicated; G89.29 Other chronic pain; F41.9 Anxiety disorder, unspecified; F31.9 Bipolar disorder, unspecified; F20.9 Schizophrenia, unspecified; F12.90 Cannabis use, unspecified, uncomplicated; Z88.5 Allergy status to narcotic agent; Z88.8 Allergy status to other drugs, medicaments and biological substances; Z79.2 Long term (current) use of antibiotics; Z79.899 Other long term (current) drug therapy
CPT/HCPCS: 10060; 99283

== ENCOUNTER 2022-05-16 19:17 | Emergency (ER) | payer MEDICAID ==
[~2022-05-16] VITALS: Ht 165.1 cm; Wt 80.2 kg
[2022-05-16 19:48] VITALS: BP 145/64
[2022-05-16 21:56] LABS: CLARITY,URINE CLEAR (Clear); COLOR,URINE YELLOW (Yellow); GLUCOSE, URINE NEGATIVE (Neg); KETONES,URINE NEGATIVE (Neg); LEUKOCYTE ESTERASE ,URINE NEGATIVE (Neg); NITRITES, URINE NEGATIVE (Neg); OCCULT BLOOD,URINE MODERATE (Neg); PROTEIN,URINE TRACE mg/dl (Neg); UROBILINOGEN,URINE 0.2 E.U/dL (0.2-1.0)
[2022-05-16 21:59] LABS: UA COLLECTION TYPE CLN CATCH MIDSTREAM
[2022-05-16 22:01] LABS: BACTERIA,URINE FEW /HPF (Neg); RBC,URINE 0-2 /HPF (0-2); SQUAMOUS EPITHELIAL CELL,UR MANY /LPF (FEW); WBC,URINE NONE SEEN /HPF (0-4)
[2022-05-16 22:02] LABS: MUCUS STRANDS MODERATE /LPF (Neg)
== END 2022-05-16 22:32 | disposition home or self-care (01) ==
LOC: ER 19:18
DX: R30.0 Dysuria (principal); J45.909 Unspecified asthma, uncomplicated; G89.29 Other chronic pain; M54.50 Low back pain, unspecified; F31.9 Bipolar disorder, unspecified; F12.90 Cannabis use, unspecified, uncomplicated; Z88.5 Allergy status to narcotic agent; Z88.8 Allergy status to other drugs, medicaments and biological substances
CPT/HCPCS: 81001; 99283

== ENCOUNTER 2023-03-22 18:01 | Emergency (ER) | payer MEDICAID ==
[~2023-03-22] VITALS: Ht 165.1 cm; Wt 78.6 kg
[2023-03-22 18:13] VITALS: BP 126/85
[2023-03-22 18:15] LABS: BASOPHILS % (AUTO) 0.8 % (0-1); EOSINOPHILS # (AUTO) 0.1 X10'3 (0-0.9); EOSINOPHILS % (AUTO) 1.5 % (0-6); HEMATOCRIT 41.3 % (35.0-45.0); HEMOGLOBIN 13.9 g/dl (12.0-16.0); LYMPHOCYTES # (AUTO) 2.7 X10'3 (1.1-4.8); LYMPHOCYTES % (AUTO) 42.6 % (21-51); MEAN CORPUSCULAR HEMOGLOBIN 32.8 PG (27.0-31.0); MEAN CORPUSCULAR HGB CONC 33.6 g/dL (33.0-36.5); MEAN CORPUSCULAR VOLUME 97.4 FL (78-98); MEAN PLATELET VOLUME 7.8 FL (7.4-10.4); MONOCYTES # (AUTO) 0.4 X10'3 (0-0.9); NEUTROPHILS % (AUTO) 48.1 % (42-75); PLATELET COUNT 212 X10'3 (140-440); RED BLOOD COUNT 4.24 X10'6 (4.20-5.60); RED CELL DISTRIBUTION WIDTH 13.1 % (11.5-14.5); WHITE BLOOD COUNT 6.3 X10'3 (4.5-11.0)
[2023-03-22 18:30] LABS: ALANINE AMINOTRANSFERASE 23 U/L (12-78); ALBUMIN 4.1 G/DL (3.4-5.0); ALBUMIN/GLOBULIN RATIO 1.2 (1.1-1.5); ALKALINE PHOSPHATASE 63 IU/L (46-116); ANION GAP 10 (8-16); ASPARTATE AMINO TRANSFERASE 19 U/L (10-37); BILIRUBIN,TOTAL 0.3 MG/DL (0.1-1.0); BLOOD UREA NITROGEN 8 MG/DL (7-18); BUN/CREATININE RATIO 8.4 (10.0-20.0); CALCIUM 8.3 MG/DL (8.5-10.1); CHLORIDE 105 MMOL/L (99-107); CREATININE 0.95 MG/DL (0.40-0.90); GLUCOSE 125 MG/DL (70-104); POTASSIUM 3.8 MMOL/L (3.5-5.1); SODIUM 141 MMOL/L (135-145); TOTAL CARBON DIOXIDE 25.6 MMOL/L (24-32); TOTAL PROTEIN 7.4 G/DL (6.4-8.2); eGFR 60 ML/MIN
== END 2023-03-22 22:47 | disposition left against medical advice (07) ==
LOC: ER 18:02
DX: R07.89 Other chest pain (principal); Z53.21 Procedure and treatment not carried out due to patient leaving prior to being seen by health care provider
CPT/HCPCS: 36415; 71045; 80053; 83880; 84484; 85025; 93005; 99281

== ENCOUNTER 2023-06-24 11:03 | Emergency (ER) | payer MEDICAID ==
[~2023-06-24] VITALS: Ht 165.1 cm; Wt 81.8 kg
[2023-06-24 11:38] VITALS: BP 136/65; PULSE 70; TEMP 98.5; O2SAT 100
[2023-06-24 12:01] VITALS: RESP 20
[2023-06-24 12:58] LABS: BASOPHILS % (AUTO) 0.3 % (0-1); EOSINOPHILS # (AUTO) 0.1 X10'3 (0-0.9); EOSINOPHILS % (AUTO) 0.8 % (0-6); HEMATOCRIT 40.3 % (35.0-45.0); HEMOGLOBIN 13.8 g/dl (12.0-16.0); LYMPHOCYTES # (AUTO) 0.5 X10'3 (1.1-4.8); LYMPHOCYTES % (AUTO) 5.2 % (21-51); MEAN CORPUSCULAR HEMOGLOBIN 34.2 PG (27.0-31.0); MEAN CORPUSCULAR HGB CONC 34.2 g/dL (33.0-36.5); MEAN CORPUSCULAR VOLUME 99.9 FL (78-98); MEAN PLATELET VOLUME 7.8 FL (7.4-10.4); MONOCYTES # (AUTO) 0.3 X10'3 (0-0.9); MONOCYTES % (AUTO) 3.3 % (2-12); NEUTROPHILS # (AUTO) 8.3 X10'3 (1.8-7.7); NEUTROPHILS % (AUTO) 90.4 % (42-75); PLATELET COUNT 207 X10'3 (140-440); RED BLOOD COUNT 4.03 X10'6 (4.20-5.60); RED CELL DISTRIBUTION WIDTH 13.4 % (11.5-14.5); WHITE BLOOD COUNT 9.2 X10'3 (4.5-11.0)
[2023-06-24 13:03] LABS: ALBUMIN 3.9 G/DL (3.4-5.0); ANION GAP 7 (8-16); BLOOD UREA NITROGEN 7 MG/DL (7-18); BUN/CREATININE RATIO 8.9 (10.0-20.0); CALCIUM 8.6 MG/DL (8.5-10.1); CHLORIDE 100 MMOL/L (99-107); CREATININE 0.79 MG/DL (0.40-0.90); GLUCOSE 107 MG/DL (70-104); POTASSIUM 3.8 MMOL/L (3.5-5.1); SODIUM 135 MMOL/L (135-145); TOTAL CARBON DIOXIDE 27.9 MMOL/L (24-32); eCRCL 68 ML/MIN; eGFR 74 ML/MIN
[2023-06-24] MEDS ORDERED: AZIT250T82 PO (13:13)
[2023-06-24] MEDS ORDERED: ALBU18HF2 INH (13:13)
[2023-06-24] MEDS ORDERED: PRED20TA PO (13:13)
== END 2023-06-24 14:00 | disposition home or self-care (01) ==
LOC: ER 11:04
DX: R04.2 Hemoptysis (principal); Z20.822 Contact with and (suspected) exposure to COVID-19; J42 Unspecified chronic bronchitis
CPT/HCPCS: 36415; 71045; 80048; 85025; 87502; 87503; 87811; 99284

== ENCOUNTER 2023-07-14 11:16 | Emergency (ER) | payer MEDICAID ==
[~2023-07-14] VITALS: Ht 165.1 cm; Wt 80.0 kg
[~2023-07-14 11:16] MED LIST changes: +ALBU18HF2 INH
[2023-07-14 11:50] LABS: BILIRUBIN,URINE NEGATIVE (Neg); CLARITY,URINE CLEAR (Clear); COLOR,URINE YELLOW (Yellow); GLUCOSE, URINE NEGATIVE (Neg); KETONES,URINE NEGATIVE (Neg); LEUKOCYTE ESTERASE ,URINE NEGATIVE (Neg); NITRITES, URINE NEGATIVE (Neg); OCCULT BLOOD,URINE SMALL (Neg); PH,URINE 5.5 (4.8-8.0); PROTEIN,URINE NEGATIVE (Neg); UROBILINOGEN,URINE 0.2 E.U/dL (0.2-1.0)
[2023-07-14 11:54] LABS: UA COLLECTION TYPE CLN CATCH MIDSTREAM
[2023-07-14 12:19] LABS: BACTERIA,URINE FEW /HPF (Neg); RBC,URINE 0-2 /HPF (0-2); SQUAMOUS EPITHELIAL CELL,UR MODERATE /LPF (FEW); WBC,URINE 0-4 /HPF (0-4)
--- NOTE | 2023-07-14 12:39 | NUR ---
I have reviewed and agree with all interventions, assessments performed and documented by HISTOLOGY AIDE
[2023-07-14] MEDS ORDERED: ketorolac trometh inj. 60 MG/2 ML VIAL IM ONE (12:55)
[2023-07-14] MEDS ORDERED: NAPR-56 PO (12:59)
[2023-07-14] MEDS ORDERED: AMOX-117 PO (12:59)
[2023-07-14 13:07] VITALS: BP 143/79; PULSE 56; RESP 18; TEMP 98.2; O2SAT 96
== END 2023-07-14 13:08 | disposition home or self-care (01) ==
LOC: ER 11:17
DX: K04.7 Periapical abscess without sinus (principal); J45.909 Unspecified asthma, uncomplicated; G89.29 Other chronic pain; F12.90 Cannabis use, unspecified, uncomplicated; F41.9 Anxiety disorder, unspecified; Z88.5 Allergy status to narcotic agent; Z88.8 Allergy status to other drugs, medicaments and biological substances; Z79.899 Other long term (current) drug therapy
CPT/HCPCS: 81001; 96372; 99283; J1885

== ENCOUNTER 2025-01-02 10:40 | Emergency (ER) | payer MEDICAID ==
[~2025-01-02] VITALS: Ht 165.1 cm; Wt 80.6 kg
[2025-01-02 10:44] VITALS: BP 172/98; PULSE 85; RESP 16; O2SAT 96
[2025-01-02] MEDS ORDERED: TRIA15OI9 TOP (11:20)
[2025-01-02 11:42] VITALS: TEMP 98
== END 2025-01-02 11:45 | disposition home or self-care (01) ==
LOC: ER 10:41
DX: K64.4 Residual hemorrhoidal skin tags (principal); J45.909 Unspecified asthma, uncomplicated; G89.29 Other chronic pain; M54.9 Dorsalgia, unspecified; F41.9 Anxiety disorder, unspecified; F31.9 Bipolar disorder, unspecified; F20.9 Schizophrenia, unspecified; F12.90 Cannabis use, unspecified, uncomplicated; Z90.49 Acquired absence of other specified parts of digestive tract; Z88.5 Allergy status to narcotic agent; Z79.899 Other long term (current) drug therapy
CPT/HCPCS: 99283

== ENCOUNTER 2025-02-09 14:18 | Emergency (ER) | payer MEDICAID, OTHER ==
[~2025-02-09] VITALS: Ht 165.1 cm; Wt 78.6 kg
[~2025-02-09 14:18] MED LIST changes: +TRIA15OI9 TOP
[2025-02-09 14:21] VITALS: BP 144/78; PULSE 80; RESP 17; TEMP 97.8; O2SAT 97
--- NOTE | 2025-02-09 14:27 | Physician Documentation ---
History of Present Illness ~ Chief Complaint: Abrasion Stated Complaint: ARM LAC Time Seen by MD: 14:48 Primary Medical Doctor: JAYMIE COFFEY Female presents to the ED with a complaint of an abrasion/laceration on her right upper arm. She scraped her arm against metal fence. Patient is unsure of when her last tetanus shot was. Patient states he was able to control bleeding shortly after the injury. She has no other concern or complaint at this time. Tetanus Within 5 Years: Yes Medication Reconciliation Allergies: Coded Allergies: Morpholine Analogues (Verified Allergy, Unknown, 07/23/24) hydromorphone (Verified Allergy, Unknown, VOMITING, TALK LIKE I AM RETARTED FOR 3 DAYS, 07/23/24) morphine (Unverified Allergy, Unknown, 07/23/24) Uncoded Allergies: SULFA (Allergy, Unknown, 06/24/23) Scheduled Albuterol Sulfate (Ventolin Hfa), 2 PUFFS INH Q4HPRN Atorvastatin Calcium (Lipitor), Unknown Dose PO DAILY, (Reported) Buspirone HCl (Buspirone HCl), Unknown Dose PO Q12H, (Reported) Citalopram Hydrobromide (Citalopram Hbr), 1 TAB PO DAILY, (Reported) Lorazepam (Ativan), 2 MG IM Q8HPRN, (Reported) Triamcinolone Acetonide (Triamcinolone Acetonide), 1 APPLIC TOP BID Scheduled PRN albuterol inhaler (Pro-Air Inhaler), 1-2 PUFFS PO Q4H PRN for shortness of breath, (Reported) Past Medical History Past Medical History: Asthma, Graves' Disease, Chronic Back Pain, Anxiety, Bipolar, Schizophrenia Past Surgical History: cholecystectomy Alcohol Use: None Drug Use: marijuana Lives with: Family Lives In: Home Review of Systems Constitutional: Denies: chills, fever, weakness Eyes: Denies: pain, blurred vision ENT: Denies: ear pain, nose pain, throat pain, mouth pain Respiratory: Denies: cough, shortness of breath Cardiovascular: Denies: chest pain, palpitations Gastrointestinal: Denies: abdominal pain, nausea, vomiting Genitourinary: Denies: burning, dysuria Female Genitalia: Denies: vaginal discharge, pelvic pain Neurological: Denies: headache, dizziness Musculoskeletal: Denies: pain, swelling Integumentary: Denies: rash, lesions Allergic/Immunologic: Denies: hives, itching Hematologic/Lymphatic: Denies: no symptoms reported Psychiatric: Denies: depression, anxiety Physical Exam Vital Signs: Temperature: 97.8, Heart Rate: 80, Respiratory Rate: 17, BP: 144/78, Pulse Oximetry: 97, Weight: 78.640 Oxygen Flow Rate: 0 Physical Exam General: Awake and Alert, no acute distress. HEENT: Conjunctiva pink, Sclera clear, Mucus Membranes moist. Neck: Supple without masses and tenderness. Resp: Unlabored. Lungs clear to auscultation bilaterally. Heart: Regular Rate and rhythm, normal S1 and S2 without murmur, rub or gallop. Musculoskeletal: Patient on exam does have superficial abrasion to lateral aspe ct of right upper arm measuring approximately 9 cm in length, I do not appreciate any laceration that would require suture or further repair. Patient is neurovascularly intact distally of the right upper extremity. Motor function is intact distally. Strength is intact distally. Extremities: No cyanosis,clubbing or edema. Skin: Warm and Dry. Progress Results/Orders Results/Orders Vital Signs 02/09/25 14:21 Temp 97.8 Pulse 80 Resp 17 B/P (MAP) 144/78 Pulse Ox 97 O2 Flow Rate 0 Medical Decision Making Findings Female presents to the ED with a complaint of an abrasion/laceration on her right upper arm. She scraped her arm against metal fence. Patient is unsure of when her last tetanus shot was. Patient states he was able to control bleeding shortly after the injury. She has no other concern or complaint at this time. Patient declined Tdap vaccination today. Patient did have bacitracin and nonstick dressing applied to wound/abrasion of right arm. Patient will perform daily dressing changes. Patient will follow up with primary care in 2-5 days if no better as needed sooner. Return to ED with any worsening, concerning or changing symptoms. Departure Disposition: 01 HOME / SELF CARE / HOMELESS Impression: Primary Impression: Abrasion Condition: Improved Discharge Instructions: Abrasion, [id number] Additional Instructions: Patient declined Tdap vaccination today. Patient did have bacitracin and nonstick dressing applied to wound/abrasion of right arm. Patient will perform daily dressing changes. Patient will follow up with primary care in 2-5 days if no better as needed sooner. Return to ED with any worsening, concerning or changing symptoms. Referrals: NO PRIMARY CARE PROVIDER (PCP) Signature Scribe Signature: No scribe Attestation: No scribe MICK ALVARADO HOT SEALING MACHINE OPERATOR February 09, 2025 14:27 GUCCI WOODARD PAC February 09, 2025 15:24
[2025-02-09] MEDS: bacitracin 15gm ointment TP STA (15:52)
== END 2025-02-09 15:56 | disposition home or self-care (01) ==
LOC: ER 14:18
DX: S41.111A Laceration without foreign body of right upper arm, initial encounter (principal); F41.9 Anxiety disorder, unspecified; F20.9 Schizophrenia, unspecified; F31.9 Bipolar disorder, unspecified; J45.909 Unspecified asthma, uncomplicated; Z88.5 Allergy status to narcotic agent; Z90.49 Acquired absence of other specified parts of digestive tract; X58.XXXA Exposure to other specified factors, initial encounter; Y93.89 Activity, other specified; Y92.89 Other specified places as the place of occurrence of the external cause; Y99.8 Other external cause status
CPT/HCPCS: 99282

== ENCOUNTER 2025-03-21 13:20 | Emergency (ER) | payer MEDICAID, OTHER ==
[~2025-03-21] VITALS: Ht 165.1 cm; Wt 81.4 kg
[2025-03-21 13:25] VITALS: BP 131/67; PULSE 73; RESP 16; TEMP 98.4; O2SAT 96
[2025-03-21] MEDS: LIDOcaine 1% W/epiNEPHrine 1:100,000 20ml vial IJ ONE (15:24)
[2025-03-21] MEDS ORDERED: DOXY100C43 PO (16:08)
--- NOTE | 2025-03-21 16:08 | Physician Documentation ---
History of Present Illness ~ Chief Complaint: Abscess Stated Complaint: LUMP UNDER R BREAST Time Seen by MD: 14:03 OK to notify your PCP?: Yes Primary Medical Doctor: JAYMIE BARRETT Source: patient Mode of Arrival: POV Exam Limitations: no limitations HPI 59-year-old female with chief complaint right breast pain and swelling which started a few days ago. No pre arrival treatment. States that the pain and swelling is getting worse which is why she decided to come to the ER today. No fever, chills, nipple discharge, pain in her axilla. Tetanus Within 5 Years: No Medication Reconciliation Allergies: Coded Allergies: Morpholine Analogues (Verified Allergy, Unknown, 03/21/25) hydromorphone (Verified Allergy, Unknown, VOMITING, TALK LIKE I AM RETARTED FOR 3 DAYS, 03/21/25) morphine (Unverified Allergy, Unknown, 03/21/25) Uncoded Allergies: SULFA (Allergy, Unknown, 06/24/23) Scheduled Albuterol Sulfate (Ventolin Hfa), 2 PUFFS INH Q4HPRN Atorvastatin Calcium (Lipitor), Unknown Dose PO DAILY, (Reported) Buspirone HCl (Buspirone HCl), Unknown Dose PO Q12H, (Reported) Citalopram Hydrobromide (Citalopram Hbr), 1 TAB PO DAILY, (Reported) Doxycycline Monohydrate (Doxycycline Monohydrate), 1 CAP PO Q12H Lorazepam (Ativan), 2 MG IM Q8HPRN, (Reported) Triamcinolone Acetonide (Triamcinolone Acetonide), 1 APPLIC TOP BID Scheduled PRN albuterol inhaler (Pro-Air Inhaler), 1-2 PUFFS PO Q4H PRN for shortness of breath, (Reported) Past Medical History Past Medical History: Asthma, Graves' Disease, Chronic Back Pain, Anxiety, Bipolar, Schizophrenia Past Surgical History: cholecystectomy Smoking Status: Current every day smoker Alcohol Use: None Drug Use: marijuana Lives with: Family Lives In: Home Review of Systems All Other Systems at this time: Reviewed and Negative Physical Exam Vital Signs: Temperature: 98.4, Source: Oral, Heart Rate: 73, Respiratory Rate: 16, BP: 131/67, Pulse Oximetry: 96, Weight: 81.360 Physical Exam General Appearance: Alert, WD/WN. NAD. HEENT: NCAT, PERRL, EOMI. Neck: Supple, trachea midline. Cardiovascular: RRR. No m/r/g. Lungs: CTAB. Breathing unlabored Breast: Right breast erythematous fluctuant protuberant mass measuring about 1 cm in diameter with surrounding erythema like a few cm below the areola. Area is tender to palpation. No active drainage. Extremities: Normal inspection. No edema. Skin: Warm/dry, normal color Neurological: Alert and oriented x4, normal gait. Psychiatric: Affect congruent with mood. Procedures I & D Procedure : Site: right breast Anesthesia: Lidocaine w/ Epi Volume Anesthetic (mls): 3 Blade Size: 11 Incision: pus drained, blood drained Tolerated Procedure Well?: yes, no complications Progress Progress Note pain improved post I&D Results/Orders Results/Orders Orders - CONNIE MADRID Cult (Aer) Routine C&S+Gram St (03/21/25 15:04) Laceration/I&D Tray Set Up (03/21/25 15:04) Completed Orders - CONNIE MADRID Lidocaine 1% W/Epi 1:100,000 (Xylocaine (03/21/25 15:05) Vital Signs 03/21/25 13:25 Temp 98.4 Pulse 73 Resp 16 B/P (MAP) 131/67 Pulse Ox 96 Microbiology Date/Time Source Procedure Growth Status 03/21/25 15:54 Breast Right Abscess Routine Culture - Preliminary Resulted Medical Decision Making Differential Dx:Considerations: Include: Abscess, Bacteremia, Cellulitis, Erysipelas, Felon, Gas gangrene, Hidrademitis suppurativa, Impetigo, Lymphangitis, Osteromyelitis, Paronychia, Septicemia Departure Time of Disposition: 19:19 Disposition: 01 HOME / SELF CARE / HOMELESS Impression: Primary Impression: Abscess Condition: Stable Discharge Instructions: Abscess, Care After Additional Instructions: ANTIBIOTIC SENT TO PHARMACY RETURN IF INCREASING PAIN, REDNESS, SWELLING OR FEVER Referrals: NO PRIMARY CARE PROVIDER (PCP) Prescriptions Doxycycline Monohydrate (Doxycycline Monohydrate) 100 Mg Capsule 1 CAP PO Q12H for 10 Days, #20 CAP SWITCH TO HYCLATE IF NEEDED Prov: CONNIE MADRID 03/21/25 Education Educated: Patient Educated regarding: diagnosis, treatment, need for follow up Signature Scribe Signature: x Attestation: CONNIE Tenorio Mar 21, 2025 16:08
== END 2025-03-21 16:12 | disposition home or self-care (01) ==
LOC: ER 13:21
DX: N61.1 Abscess of the breast and nipple (principal); F20.9 Schizophrenia, unspecified; F17.200 Nicotine dependence, unspecified, uncomplicated; F12.90 Cannabis use, unspecified, uncomplicated; F41.9 Anxiety disorder, unspecified; F31.9 Bipolar disorder, unspecified; J45.909 Unspecified asthma, uncomplicated; Z88.5 Allergy status to narcotic agent; Z90.49 Acquired absence of other specified parts of digestive tract; Z79.899 Other long term (current) drug therapy
CPT/HCPCS: 10060; 87070; 87077; 87186; 99283; A6449